=== PATIENT | female | born 1990 | race Caucasian/White ===

== ENCOUNTER 2021-04-02 23:08 | Emergency (ER) | payer MEDICAID ==
[~2021-04-02] VITALS: Ht 162.6 cm; Wt 81.6 kg
[2021-04-02 23:22] VITALS: BP 133/81
--- NOTE | 2021-04-02 23:26 | NUR ---
TO LOBBY A/W BED AMBULATORY
== END 2021-04-03 01:00 | disposition left against medical advice (07) ==
LOC: MED 23:08
DX: R05.9 Cough, unspecified (principal); R06.02 Shortness of breath; Z53.21 Procedure and treatment not carried out due to patient leaving prior to being seen by health care provider

== ENCOUNTER 2021-09-15 06:47 | Emergency (ER) | payer MEDICAID, OTHER ==
[~2021-09-15] VITALS: Ht 160 cm; Wt 95.3 kg
[2021-09-15 07:02] VITALS: BP 133/94
[2021-09-15 08:37] LABS: ALBUMIN 3.6 g/dL (3.4-5.0); ANION GAP 13.4 (8-16); CARBON DIOXIDE 26.8 mmol/L (21-32); CREATININE 0.8 mg/dL (0.6-1.3); POTASSIUM 3.2 mmol/L (3.5-5.1); TOTAL BILIRUBIN 0.4 mg/dL (0.0-1.0)
[2021-09-15 09:30] VITALS: BP 119/69
[2021-09-15 10:18] LABS: BASOPHILS # (AUTO) 0.1 K/uL (0.00-0.22); BASOPHILS % (AUTO) 0.7 % (0.0-2.0); EOSINOPHILS # (AUTO) 0.2 K/uL (0-0.4); EOSINOPHILS % (AUTO) 1.8 % (0.0-4.0); HEMATOCRIT 41.1 % (36-48); HEMOGLOBIN 13.9 g/dL (12.0-16.0); LYMPHOCYTES # (AUTO) 3.3 K/uL (2.5-16.5); LYMPHOCYTES % (AUTO) 36.4 % (20.5-51.1); MEAN CORPUSCULAR HEMOGLOBIN 31 pg (27-31); MEAN CORPUSCULAR HGB CONC 34 g/dL (33-37); MEAN CORPUSCULAR VOLUME 92.4 fL (80-94); MONOCYTES # (AUTO) 0.8 K/uL (0.8-1.0); MONOCYTES % (AUTO) 8.3 % (1.7-9.3); NEUTROPHILS # (AUTO) 4.8 K/uL (1.8-7.7); NEUTROPHILS % (AUTO) 52.8 % (42.2-75.2); PLATELET COUNT (AUTO) 297 K/uL (140-450); RED BLOOD CELL COUNT(AUTO) 4.45 MIL/uL (4.20-5.40); WHITE BLOOD COUNT (AUTO) 9.1 K/uL (4.8-10.8)
== END 2021-09-15 10:50 | disposition home or self-care (01) ==
LOC: MED 06:47
DX: R53.1 Weakness (principal); H53.8 Other visual disturbances
CPT/HCPCS: 36415; 71045; 80053; 85025; 93005; 99285

== ENCOUNTER 2022-08-26 17:05 | Emergency (ER) | payer OTHER ==
[~2022-08-26] VITALS: Ht 162.6 cm; Wt 90.7 kg
[2022-08-26 17:11] VITALS: BP 100/59
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
[2022-08-26] MEDS ORDERED: ACETAMINOPHEN 325 MG TAB PO ONE (17:35)
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
--- NOTE | 2022-08-26 19:19 | NUR ---
GAVE REPORT TO LIGIA URBANO
[2022-08-26] MEDS ORDERED: IBUP-2213 PO (20:29)
[2022-08-26 20:47] VITALS: BP 100/59
== END 2022-08-26 20:47 | disposition home or self-care (01) ==
LOC: MED 17:05
DX: S63.592A Other specified sprain of left wrist, initial encounter (principal); S09.90XA Unspecified injury of head, initial encounter; Y08.89XA Assault by other specified means, initial encounter; Y93.89 Activity, other specified; Y92.89 Other specified places as the place of occurrence of the external cause; Y99.8 Other external cause status
CPT/HCPCS: 70450; 73110; 73130; 90471; 90715; 99285